=== PATIENT | female | born 1980 | race Caucasian/White ===

== ENCOUNTER 2019-01-02 07:30 | Day surgery (SDC) | payer OTHER ==
[~2019-01-02 07:30] MED LIST: ANTICONCEPTIVAS PO; IRON236 MG PO; ZYRTEC10 M3
[2019-01-02] MEDS ORDERED: NAPROXEN SODIU550 MG PO (13:50)
[2019-01-02] MEDS ORDERED: PERCOCET 5-3251 EACH PO (13:51)
== END 2019-01-02 18:25 | disposition home or self-care (01) ==
LOC: CIR.AMB 07:30
DX: N84.0 Polyp of corpus uteri (principal)